=== PATIENT | female | born 2005 | race Caucasian/White ===

== ENCOUNTER 2023-09-30 06:47 | Emergency (ER) | payer BC ==
[~2023-09-30] VITALS: Ht 152.4 cm; Wt 46.8 kg
[~2023-09-30 06:47] MED LIST: NO HOME MEDICATIONS
[2023-09-30 07:01] VITALS: TEMP 97.8
[2023-09-30] MEDS ORDERED: Ondansetron 4 MG/2 ML VIAL IV ONE (07:15)
[2023-09-30] MEDS ORDERED: NS 1,000 ML IV ONE (07:15)
[2023-09-30 07:40] LABS: HEMATOCRIT 39.9 % (35.0-45.0); HEMOGLOBIN 13.8 g/dl (12.0-15.0); MEAN CELL VOLUME 91 fl (80.0-95.0); MEAN CORPUSCULAR HEMOGLOBIN 31 pg (26-32); MEAN CORPUSCULAR HGB CONC 35 g/dl (33.0-37.0); MEAN PLATELET VOLUME 11.6 fl (7.4-10.4); PLATELET COUNT 147 K/mm3 (130-400); RED BLOOD COUNT 4.39 M/mm3 (4.10-5.30); REDCELL DISTRIBUTION WIDTH-CV 11.9 % (11.5-14.5)
[2023-09-30 07:55] LABS: ALANINE AMINOTRANSFERASE 8 U/L (0-55); ALBUMIN 3.6 g/dL (3.5-5.0); ALKALINE PHOSPHATASE 44 U/L (40-150); ANION GAP 10 mmol/L (7-16); AST,SGOT 19 U/L (5-34); BILIRUBIN,TOTAL 0.6 mg/dL (0.2-1.2); BLOOD UREA NITROGEN 10 mg/dL (7-19); CALCIUM 9.6 mg/dL (8.4-10.2); CHLORIDE 106 mEq/L (98-107); CREATININE, serum 0.67 mg/dL (0.57-1.11); GLUCOSE 84 mg/dL (70-99); POTASSIUM 3.7 mEq/L (3.5-4.5); SODIUM 139 mEq/L (136-145); TOTAL PROTEIN 6.7 g/dl (6.2-8.1)
[2023-09-30] MEDS ORDERED: ZOFRAN ODT4 MG PO (08:23)
[2023-09-30 08:51] LABS: COLLECTION METHOD CLEAN CATCH
[2023-09-30 09:02] LABS: URINE APPEARANCE TURBID (CLEAR/HAZY); URINE BLOOD NEGATIVE (NEGATIVE); URINE COLOR YELLOW (YELLOW); URINE GLUCOSE NEGATIVE (NEGATIVE); URINE KETONE 2+ (NEGATIVE); URINE NITRATE NEGATIVE (NEGATIVE); URINE PROTEIN(semi-quant) 1+ (NEGATIVE)
[2023-09-30] MEDS ORDERED: CEPHALEXIN500 M1 PO (09:16)
[2023-09-30 09:36] VITALS: BP 121/86; PULSE 78
[2023-09-30 10:05] LABS: HCG,QUANTITATIVE > 225000 mIU/mL
== END 2023-09-30 09:35 | disposition home or self-care (01) ==
LOC: COL.ER 06:47
PROVIDERS: Family Medicine
DX: O21.0 Mild hyperemesis gravidarum (principal); Z3A.11 11 weeks gestation of pregnancy
CPT/HCPCS: J2405; J7030